=== PATIENT | male | born 1995 | race Caucasian/White ===

== ENCOUNTER 2023-09-17 16:06 | Emergency (ER) | payer BC ==
[~2023-09-17] VITALS: Ht 188 cm; Wt 104.3 kg
[2023-09-17 16:22] VITALS: BP_SYST 138; PULSE 77; RESP 18; TEMP 98.1; O2SAT 97
[2023-09-17 17:37] VITALS: BP_SYST 130; PULSE 78; RESP 20; TEMP 98; O2SAT 99
== END 2023-09-17 17:37 | disposition home or self-care (01) ==
LOC: SED 16:06
DX: S93.401A Sprain of unspecified ligament of right ankle, initial encounter (principal); E11.9 Type 2 diabetes mellitus without complications; X58.XXXA Exposure to other specified factors, initial encounter; Y93.01 Activity, walking, marching and hiking; Y92.89 Other specified places as the place of occurrence of the external cause; Y99.8 Other external cause status
CPT/HCPCS: 99283